=== PATIENT | female | born 1950 | race Caucasian/White ===

== ENCOUNTER 2019-09-11 08:07 | Day surgery (SDC) | payer MEDICARE, BC ==
[~2019-09-11] VITALS: Ht 175.3 cm; Wt 69.7 kg
[~2019-09-11 08:07] MED LIST: EPIPEN 2-P0.3 MG/0.1 IM; LEVSOD112 PO; SPIHYD
[2019-09-11] MEDS ORDERED: TIROSINT100 MCG (08:35)
== END 2019-09-11 09:58 | disposition home or self-care (01) ==
LOC: ORSCSDS 08:07
PROVIDERS: Internal Medicine Gastroenterology
PROC: 0DBM8ZX Excision of Descending Colon, Via Natural or Artificial Opening Endoscopic, Diagnostic (ICD-10-PCS; principal; 2019-09-11 09:15)
DX: Z12.11 Encounter for screening for malignant neoplasm of colon (principal); Z85.048 Personal history of other malignant neoplasm of rectum, rectosigmoid junction, and anus; Z86.010 Personal history of colon polyps; D12.4 Benign neoplasm of descending colon; E78.00 Pure hypercholesterolemia, unspecified; E03.9 Hypothyroidism, unspecified; I10 Essential (primary) hypertension; Z79.899 Other long term (current) drug therapy
CPT/HCPCS: 88305; J2704; J7120

== ENCOUNTER → 2021-10-28 | Outpatient (CLI) | payer MEDICARE, BC ==
[~2021-10-28] MED LIST changes: +TIROSINT100 MCG
== END ==
LOC: LAB SHORT 13:41
DX: C44.722 Squamous cell carcinoma of skin of right lower limb, including hip (principal)

== ENCOUNTER 2025-01-22 07:09 | Day surgery (SDC) | payer MEDICARE, BC ==
[~2025-01-22] VITALS: Ht 172.7 cm; Wt 70.6 kg
[2025-01-22] MEDS ORDERED: METO25 (07:58)
[2025-01-22] MEDS ORDERED: ELIQUIS5 M2 (07:58)
[2025-01-22 09:39] VITALS: BP 106/61
== END 2025-01-22 09:43 | disposition home or self-care (01) ==
LOC: ORSCSDS 07:09
PROVIDERS: Internal Medicine Gastroenterology
PROC: 0DBM8ZX Excision of Descending Colon, Via Natural or Artificial Opening Endoscopic, Diagnostic (ICD-10-PCS; principal; 2025-01-22 08:45)
PROC: 0DBK8ZX Excision of Ascending Colon, Via Natural or Artificial Opening Endoscopic, Diagnostic (ICD-10-PCS; principal; 2025-01-22 08:45)
DX: Z12.11 Encounter for screening for malignant neoplasm of colon (principal); D12.2 Benign neoplasm of ascending colon; D12.4 Benign neoplasm of descending colon; Z86.0101 Personal history of adenomatous and serrated colon polyps; Z85.048 Personal history of other malignant neoplasm of rectum, rectosigmoid junction, and anus; Z83.719 Family history of colon polyps, unspecified; Z79.01 Long term (current) use of anticoagulants; Z79.899 Other long term (current) drug therapy
CPT/HCPCS: 88305; J2704; J7120